=== PATIENT | female | born 1990 | race Caucasian/White ===

== ENCOUNTER 2017-05-02 10:24 | Emergency (ER) | payer BC, OTHER ==
[~2017-05-02] VITALS: Ht 177.8 cm; Wt 133.0 kg
[2017-05-02 10:34] VITALS: BP 113/80; TEMP 37.1; Ht 177.8 cm; Wt 133.0 kg
[2017-05-02] MEDS ORDERED: ALPR-411 PO (11:17)
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
[2017-05-02 11:38] VITALS: PULSE 104; O2SAT 97
== END 2017-05-02 11:39 | disposition home or self-care (01) ==
LOC: C.EDB 10:27
DX: S09.90XA Unspecified injury of head, initial encounter (principal); V47.5XXA Car driver injured in collision with fixed or stationary object in traffic accident, initial encounter; Y93.89 Activity, other specified; Y99.8 Other external cause status; Y92.488 Other paved roadways as the place of occurrence of the external cause; J45.909 Unspecified asthma, uncomplicated; F17.200 Nicotine dependence, unspecified, uncomplicated; Z90.89 Acquired absence of other organs